=== PATIENT | female | born 1965 | race Two or more races ===

== ENCOUNTER 2021-12-17 09:55 | Outpatient (CLI) | payer OTHER | END 2021-12-17 10:06 | disposition home or self-care (01) | LOC: RX STUDY 09:55 | PROVIDERS: ATTEND Internal Medicine Gastroenterology | DX: K56.600 Partial intestinal obstruction, unspecified as to cause (principal); K59.00 Constipation, unspecified; K56.609 Unspecified intestinal obstruction, unspecified as to partial versus complete obstruction; C18.9 Malignant neoplasm of colon, unspecified; K57.32 Diverticulitis of large intestine without perforation or abscess without bleeding ==